=== PATIENT | female | born 1975 | race Caucasian/White ===

== ENCOUNTER 2018-09-20 11:54 | Inpatient (IN) | payer MEDICARE, MEDICAID ==
--- NOTE | 2018-09-20 13:11 | EDM.PDOC ---
ED HPI GENERAL MEDICAL PROBLEM - General Stated Complaint: DIZZY STOMACH PAIN Time Seen by Provider: 09/20/18 12:40 Source of Information: Reports: Patient History Limitations: Reports: No Limitations - History of Present Illness INITIAL COMMENTS - FREE TEXT/NARRATIVE: We 3-year-old resident of [facility] has had diarrhea 2-3 times yesterday none today, vomiting 2-3 times today, has been dizzy, yesterday temperature elevation than today. Yesterday and today diaphoresis. And patient fell yesterday. No history of trauma. She is in [facility] and here with a caregiver. Past medical history is significant for social phobia, obsessive-compulsive disorder, mood disorder, mental retardation mild, macrocephaly, and other medical problems: obesity cholelithiasis poor oral hygiene abdominal discomfort intermittent, chronic acne , onychomycosis and is on Depo-Provera uses clotrimazole betamethasone for vag.fungal infections GERD omeprzole 40 mg daily and on antidepressant medicines : venlafaxine and sertraline Lower Abdominal Pain Score (Numeric/FACES): 6 - Related Data Allergies Allergy/AdvReac Type Severity Reaction Status Date / Time latex Allergy Cannot Verified 09/20/18 12:21 Remember Penicillins Allergy Rash Verified 09/20/18 12:21 Home Meds: Home Meds ARIPiprazole [Aripiprazole] 15 mg PO BEDTIME 09/20/18 [History] Benzocaine/Resorcinol [Vaginal Itch Cream] 1 applic TOP BEDTIME 09/20/18 [ History] Clotrimazole/Betameth Dip/Zinc [Dermacinrx Therazole Shane] 1 ampule TOP BID PRN 09/20/18 [History] Mineral Oil/I-Prop Myr/Water [Minerin] 1 applic TOP BID 09/20/18 [History] Multivits w-Fe,Other Min/Lut [Theratrum Complete] 1 ea PO DAILY 09/20/18 [ History] Omeprazole 40 mg PO DAILY 09/20/18 [History] Sertraline [Zoloft] 50 mg PO BID 09/20/18 [History] Sertraline [Zoloft] 100 mg PO BID 09/20/18 [History] Venlafaxine HCl [Venlafaxine ER] 150 mg PO DAILY 09/20/18 [History] hydrOXYzine pamoate [Hydroxyzine Pamoate] 25 mg PO DAILYBH PRN 09/20/18 [History ] ED ROS GENERAL - Review of Systems Review Of Systems: See Below HEENT: Reports: No Symptoms Respiratory: Reports: No Symptoms, Other (No cough) Cardiovascular: Reports: No Symptoms Endocrine: Reports: No Symptoms GI/Abdominal: Reports: Diarrhea, Vomiting : Reports: No Symptoms Musculoskeletal: Reports: No Symptoms Skin: Reports: No Symptoms Psychiatric: Reports: Anxiety, Other (Depression and obsessive-compulsive, social phobia, mental retardation, mood disorder,) Immunologic: Reports: No Symptoms ED EXAM, GENERAL - Physical Exam Exam: See Below Free Text/Narrative:: 43-year-old woman who is laying in bed and is interactive and appropriate obese well-nourished in mild distress who 15 days later after she had been exam states she had mild chest discomfort. Exam Limited By: No Limitations General Appearance: Alert, WD/WN, Moderate Distress Eye Exam: Bilateral Eye: Normal Inspection Ear Exam: Bilateral Ear: Auricle Normal, Canal Normal, TM normal Nose: Normal Inspection, Normal Mucosa, No Blood Throat/Mouth: Normal Inspection, Normal Lips, Normal Oropharynx, Normal Voice, No Airway Compromise, Other (Poor dentition) Head: Atraumatic, Normocephalic Respiratory/Chest: No Respiratory Distress, Lungs Clear, No Accessory Muscle Use , Chest Non-Tender Cardiovascular: Normal Peripheral Pulses, Regular Rate, Rhythm, No Edema, No Gallop, No JVD, No Murmur, No Rub Peripheral Pulses: 1+: Brachial (L), Brachial (R), Dorsalis Pedis (L), Dorsalis Pedis (R) GI/Abdominal: Normal Bowel Sounds, Soft, Non-Tender, No Organomegaly, No Distention, No Abnormal Bruit, No Mass (Female) Exam: Deferred Rectal (Female) Exam: Deferred Back Exam: Normal Inspection Extremities: Normal Inspection, Normal Range of Motion, No Pedal Edema, Normal Capillary Refill, Other (Feet are very cold) Neurological: Alert, Oriented, CN II-XII Intact, Normal Cognition, Normal Gait, Normal Reflexes, No Motor/Sensory Deficits Psychiatric: Flat Affect Skin Exam: Warm, Normal Color, No Rash, Other (Feet are very cold no diaphoresis ) Course - Vital Signs Last Recorded V/S: Last Vital Signs Temp 36.5 C 09/20/18 12:39 Pulse 132 H 09/20/18 12:39 Resp 20 09/20/18 12:39 BP 132/109 H 09/20/18 12:39 Pulse Ox 98 09/20/18 12:39 - Orders/Labs/Meds Orders: Active Orders 24 hr Category Date Time Status Patient Status [ADT] Routine ADT 09/20/18 14:20 Ordered Ambulate [RC] ASDIRECTED Care 09/20/18 14:20 Ordered Cardiac Monitoring [RC] CONTINUOUS Care 09/20/18 14:26 Ordered May Shower [RC] ASDIRECTED Care 09/20/18 14:20 Ordered Notify Provider Vital Signs [RC] ASDIRECTED Care 09/20/18 14:26 Ordered Oxygen Therapy [RC] PRN Care 09/20/18 14:20 Ordered Pulse Oximetry [RC] CONTINUOUS Care 09/20/18 14:26 Ordered RT Aerosol Therapy [RC] ASDIRECTED Care 09/20/18 14:30 Ordered Up ad Rossana [RC] ASDIRECTED Care 09/20/18 14:20 Ordered VTE/DVT Education [RC] Per Unit Routine Care 09/20/18 14:20 Ordered Vital Signs [RC] Q4H Care 09/20/18 14:20 Ordered Regular Diet [DIET] Diet 09/20/18 Lunch Ordered CXR [Chest 2V] [CR] Stat Exams 09/20/18 13:32 Ordered BLOOD GAS ARTERIAL [BG] Timed Lab 09/20/18 14:20 Ordered CULTURE BLOOD [BC] Urgent Lab 09/20/18 13:05 Received CULTURE BLOOD [BC] Urgent Lab 09/20/18 13:31 Ordered CULTURE STREP A CONFIRMATION [RM] Stat Lab 09/20/18 13:20 Results STREP SCRN A RAPID W CULT CONF [RM] Stat Lab 09/20/18 13:20 Results STREP SCRN A RAPID W CULT CONF [RM] Stat Lab 09/20/18 13:34 Ordered Acetaminophen [Tylenol] Med 09/20/18 14:20 Ordered 650 mg PO Q4H PRN Albuterol/Ipratropium [DuoNeb 3.0-0.5 MG/3 ML] Med 09/20/18 16:00 Ordered 3 ml NEB QIDRT Bisacodyl [Dulcolax] Med 09/20/18 14:20 Ordered 5 mg PO DAILY PRN Docusate Sodium/Sennosides [Senna Plus] Med 09/20/18 14:20 Ordered 1 tab PO BID PRN Enoxaparin [Lovenox] Med 09/20/18 14:30 Ordered 40 mg SUBCUT Q24H Ibuprofen [Motrin] Med 09/20/18 14:20 Ordered 600 mg PO Q6H PRN Ondansetron [Zofran ODT] Med 09/20/18 14:20 Ordered 4 mg PO Q6H PRN Ondansetron [Zofran] Med 09/20/18 14:20 Ordered 4 mg IV Q6H PRN Piperacillin/Tazobactam [Zosyn] 4.5 gm Med 09/20/18 14:45 Ordered Sodium Chloride 0.9% [Normal Saline] 100 ml IV Q6H Sodium Chloride 0.9% [Normal Saline] 500 ml Med 09/20/18 14:20 Ordered IV .BOLUS Vancomycin 1,750 mg Med 09/20/18 14:36 Ordered Sodium Chloride 0.9% [Normal Saline] 250 ml IV ONETIME Blood Culture x2 Reflex Set [OM.PC] Urgent Oth 09/20/18 13:31 Ordered Resuscitation Status Routine Resus Stat 09/20/18 14:20 Ordered Medication Orders Acetaminophen (Tylenol) 650 mg PO Q4H PRN PRN Reason: Pain (Mild 1-3)/fever Albuterol/Ipratropium (Duoneb 3.0-0.5 Mg/3 Ml) 3 ml NEB QIDRT CECILIA Bisacodyl (Dulcolax) 5 mg PO DAILY PRN PRN Reason: Constipation Enoxaparin Sodium (Lovenox) 40 mg SUBCUT Q24H CECILIA Sodium Chloride (Normal Saline) 500 mls @ 999 mls/hr IV .BOLUS ONE Stop: 09/20/18 14:50 Piperacillin Sod/Tazobactam (Sod 4.5 gm/ Sodium Chloride) 100 mls @ 200 mls/hr IV Q6H CECILIA Vancomycin HCl 1,750 mg/ (Sodium Chloride) 250 mls @ 166.667 mls/hr IV ONETIME ONE Stop: 09/20/18 14:37 Ibuprofen (Motrin) 600 mg PO Q6H PRN PRN Reason: Pain (mild 1-3) Ondansetron HCl (Zofran Odt) 4 mg PO Q6H PRN PRN Reason: nausea, able to take PO Ondansetron HCl (Zofran) 4 mg IV Q6H PRN PRN Reason: Nausea/Vomiting Senna/Docusate Sodium (Senna Plus) 1 tab PO BID PRN PRN Reason: Constipation Labs: Laboratory Tests 09/20/18 09/20/18 09/20/18 Range/Units 13:05 13:05 13:05 WBC 12.1 H (4.5-12.0) X10-3/uL RBC 4.70 (3.23-5.20) x10(6)uL Hgb 15.3 (11.5-15.5) g/dL Hct 45.7 (30.0-51.3) % MCV 97.4 H (80-96) fL MCH 32.7 (27.7-33.6) pg MCHC 33.6 (32.2-35.4) g/dL RDW 13.5 (11.5-15.5) % Plt Count 286 (125-369) X10(3)uL MPV 7.8 (7.4-10.4) fL Add Manual Diff Yes Neutrophils % (Manual) 82 (46-82) % Band Neutrophils % 1 (0-6) % Lymphocytes % (Manual) 14 (13-37) % Monocytes % (Manual) 3 L (4-12) % Sodium 140 (135-145) mmol/L Potassium 3.6 (3.5-5.3) mmol/L Chloride 104 (100-110) mmol/L Carbon Dioxide 23 (21-32) mmol/L BUN 13 (7-18) mg/dL Creatinine 1.1 H (0.55-1.02) mg/dL Est Cr Clr Drug Dosing 12.02 mL/min Estimated GFR (MDRD) 54 L (>60) BUN/Creatinine Ratio 11.8 (9-20) Glucose 159 H (80-116) mg/dL Lactic Acid 4.4 H (0.4-2.2) mmol/L Calcium 8.8 (8.6-10.2) mg/dL Total Bilirubin 0.4 (0.1-1.3) mg/dL AST 72 H (5-25) IU/L ALT 163 H* (12-36) U/L Alkaline Phosphatase 85 (56-112) IU/L Total Protein 7.6 (6.0-8.0) g/dL Albumin 3.6 (3.5-5.2) g/dL Globulin 4.0 g/dL Albumin/Globulin Ratio 0.9 Urine Color (YELLOW) Urine Appearance (CLEAR) Urine pH (5.0-6.5) Ur Specific Spearman (1.010-1.025) Urine Protein (NEGATIVE) mg/dL Urine Glucose (UA) (NEGATIVE) mg/dL Urine Ketones (NEGATIVE) mg/dL Urine Occult Blood (NEGATIVE) Urine Nitrite (NEGATIVE) Urine Bilirubin (NEGATIVE) Urine Urobilinogen (NEGATIVE) mg/dL Ur Leukocyte Esterase (NEGATIVE) Urine RBC (0) Urine WBC (0) Ur Squamous Epith Cells (NS,R,O) Amorphous Sediment Urine Bacteria (NS) Urine Mucus (NS) 09/20/18 Range/Units 13:56 WBC (4.5-12.0) X10-3/uL RBC (3.23-5.20) x10(6)uL Hgb (11.5-15.5) g/dL Hct (30.0-51.3) % MCV (80-96) fL MCH (27.7-33.6) pg MCHC (32.2-35.4) g/dL RDW (11.5-15.5) % Plt Count (125-369) X10(3)uL MPV (7.4-10.4) fL Add Manual Diff Neutrophils % (Manual) (46-82) % Band Neutrophils % (0-6) % Lymphocytes % (Manual) (13-37) % Monocytes % (Manual) (4-12) % Sodium (135-145) mmol/L Potassium (3.5-5.3) mmol/L Chloride (100-110) mmol/L Carbon Dioxide (21-32) mmol/L BUN (7-18) mg/dL Creatinine (0.55-1.02) mg/dL Est Cr Clr Drug Dosing mL/min Estimated GFR (MDRD) (>60) BUN/Creatinine Ratio (9-20) Glucose (80-116) mg/dL Lactic Acid (0.4-2.2) mmol/L Calcium (8.6-10.2) mg/dL Total Bilirubin (0.1-1.3) mg/dL AST (5-25) IU/L ALT (12-36) U/L Alkaline Phosphatase (56-112) IU/L Total Protein (6.0-8.0) g/dL Albumin (3.5-5.2) g/dL Globulin g/dL Albumin/Globulin Ratio Urine Color Yellow (YELLOW) Urine Appearance Slightly cloudy (CLEAR) Urine pH 5.0 (5.0-6.5) Ur Specific Spearman 1.020 (1.010-1.025) Urine Protein Trace (NEGATIVE) mg/dL Urine Glucose (UA) Normal (NEGATIVE) mg/dL Urine Ketones Negative (NEGATIVE) mg/dL Urine Occult Blood Moderate H (NEGATIVE) Urine Nitrite Negative (NEGATIVE) Urine Bilirubin Negative (NEGATIVE) Urine Urobilinogen Normal (NEGATIVE) mg/dL Ur Leukocyte Esterase Negative (NEGATIVE) Urine RBC 5-10 (0) Urine WBC 0-5 (0) Ur Squamous Epith Cells Few H (NS,R,O) Amorphous Sediment Few Urine Bacteria Moderate H (NS) Urine Mucus Moderate H (NS) Meds: Medications Generic Name Dose Route Start Last Admin Trade Name Freq PRN Reason Stop Dose Admin Acetaminophen 650 mg 09/20/18 14:20 Tylenol PO Q4H PRN Pain (Mild 1-3)/fever Albuterol/Ipratropium 3 ml 09/20/18 16:00 Duoneb 3.0-0.5 Mg/3 Ml NEB QIDRT [facility] Bisacodyl 5 mg 09/20/18 14:20 Dulcolax PO DAILY PRN Constipation Enoxaparin Sodium 40 mg 09/20/18 14:30 Lovenox SUBCUT Q24H [facility] Sodium Chloride 500 mls @ 999 mls/hr 09/20/18 14:20 Normal Saline IV 09/20/18 14:50 .BOLUS ONE Piperacillin Sod/Tazobactam 100 mls @ 200 mls/hr 09/20/18 14:45 Sod 4.5 gm/ Sodium Chloride IV Q6H [facility] Vancomycin HCl 1,750 mg/ 250 mls @ 166.667 mls/hr 09/20/18 14:36 Sodium Chloride IV 09/20/18 14:37 ONETIME ONE Ibuprofen 600 mg 09/20/18 14:20 Motrin PO Q6H PRN Pain (mild 1-3) Ondansetron HCl 4 mg 09/20/18 14:20 Zofran Odt PO Q6H PRN nausea, able to take PO Ondansetron HCl 4 mg 09/20/18 14:20 Zofran IV Q6H PRN Nausea/Vomiting Senna/Docusate Sodium 1 tab 09/20/18 14:20 Senna Plus PO BID PRN Constipation - Re-Assessments/Exams Free Text/Narrative Re-Assessment/Exam: 09/20/18 14:38 Bihilar pneumonia. Patient has high lactic acid 4.0. Early sepsis. Will need serial lactic acid evaluation and close monitoring of vital signs. I have discussed with Dr. Souza and nursing staff.. 09/20/18 14:40 Departure - Departure Time of Disposition: 13:00 (1300 working diagnosis rule out pneumonia,influenza (he shouldn't has had her flu shots), strep pharyngitis, urinary tract infection ,gastroenteritis, dehydration, chest discomfort doubt myocardial ischemia, without myocardial ischemia. Diagnoses once laboratory finish. Lactic acidosis secondary to by hilar pneumonia. Plan stat start vancomycin plus Zosyn for healthcare associated pneumonia. Status discussed with Dr. Souza. Follow -up vital signs closely. Flushed with fluids. Tylenol ibuprofen admitted to the hospital) Disposition: Admitted As Inpatient 64 Condition: Fair Clinical Impression: Social phobia, Mental deficiency Sepsis Qualifiers: Sepsis type: sepsis due to unspecified organism Qualified Code(s): A41.9 - Sepsis, unspecified organism Pneumonia Qualifiers: Pneumonia type: due to unspecified organism Laterality: bilateral Lung location : unspecified part of lung Qualified Code(s): J18.9 - Pneumonia, unspecified organism Obesity Qualifiers: Obesity type: due to excess calories Obesity classification: adult class 3 ( BMI >= 40) Serious obesity comorbidity presence: without serious comorbidity Body mass index: BMI 40.0-44.9 Qualified Code(s): E66.01 - Morbid (severe) obesity due to excess calories; Z68.41 - Body mass index (BMI) 40.0-44.9, adult Cholelithiases Qualifiers: Cholelithiasis location: other site Biliary obstruction: without biliary obstruction Qualified Code(s): K80.80 - Other cholelithiasis without obstruction - Discharge Information *PRESCRIPTION DRUG MONITORING PROGRAM REVIEWED*: Not Applicable *COPY OF PRESCRIPTION DRUG MONITORING REPORT IN PATIENT COLBY: Not Applicable Referrals: Jose D Milligan MD [Primary Care Provider] - - My Orders Last 24 Hours: My Active Orders 09/20/18 13:05 CULTURE BLOOD [BC] Urgent 09/20/18 13:20 CULTURE STREP A CONFIRMATION [RM] Stat STREP SCRN A RAPID W CULT CONF [RM] Stat 09/20/18 13:31 CULTURE BLOOD [BC] Urgent Blood Culture x2 Reflex Set [OM.PC] Urgent 09/20/18 13:32 CXR [Chest 2V] [CR] Stat 09/20/18 13:34 STREP SCRN A RAPID W CULT CONF [RM] Stat 09/20/18 14:20 Patient Status [ADT] Routine Ambulate [RC] ASDIRECTED May Shower [RC] ASDIRECTED Oxygen Therapy [RC] PRN Up ad Rossana [RC] ASDIRECTED VTE/DVT Education [RC] Per Unit Routine Vital Signs [RC] Q4H BLOOD GAS ARTERIAL [BG] Timed Acetaminophen [Tylenol] 650 mg PO Q4H PRN Bisacodyl [Dulcolax] 5 mg PO DAILY PRN Docusate Sodium/Sennosides [Senna Plus] 1 tab PO BID PRN Ibuprofen [Motrin] 600 mg PO Q6H PRN Ondansetron [Zofran ODT] 4 mg PO Q6H PRN Ondansetron [Zofran] 4 mg IV Q6H PRN Sodium Chloride 0.9% [Normal Saline] 500 ml IV .BOLUS Resuscitation Status Routine 09/20/18 14:26 Cardiac Monitoring [RC] CONTINUOUS Notify Provider Vital Signs [RC] ASDIRECTED Pulse Oximetry [RC] CONTINUOUS 09/20/18 14:30 RT Aerosol Therapy [RC] ASDIRECTED Enoxaparin [Lovenox] 40 mg SUBCUT Q24H 09/20/18 14:36 Vancomycin 1,750 mg Sodium Chloride 0.9% [Normal Saline] 250 ml IV ONETIME 09/20/18 14:45 Piperacillin/Tazobactam [Zosyn] 4.5 gm Sodium Chloride 0.9% [Normal Saline] 100 ml IV Q6H 09/20/18 16:00 Albuterol/Ipratropium [DuoNeb 3.0-0.5 MG/3 ML] 3 ml NEB QIDRT 09/20/18 Lunch Regular Diet [DIET] - Assessment/Plan Last 24 Hours: My Active Orders 09/20/18 13:05 CULTURE BLOOD [BC] Urgent 09/20/18 13:20 CULTURE STREP A CONFIRMATION [RM] Stat STREP SCRN A RAPID W CULT CONF [RM] Stat 09/20/18 13:31 CULTURE BLOOD [BC] Urgent Blood Culture x2 Reflex Set [OM.PC] Urgent 09/20/18 13:32 CXR [Chest 2V] [CR] Stat 09/20/18 13:34 STREP SCRN A RAPID W CULT CONF [RM] Stat 09/20/18 14:20 Patient Status [ADT] Routine Ambulate [RC] ASDIRECTED May Shower [RC] ASDIRECTED Oxygen Therapy [RC] PRN Up ad Rossana [RC] ASDIRECTED VTE/DVT Education [RC] Per Unit Routine Vital Signs [RC] Q4H BLOOD GAS ARTERIAL [BG] Timed Acetaminophen [Tylenol] 650 mg PO Q4H PRN Bisacodyl [Dulcolax] 5 mg PO DAILY PRN Docusate Sodium/Sennosides [Senna Plus] 1 tab PO BID PRN Ibuprofen [Motrin] 600 mg PO Q6H PRN Ondansetron [Zofran ODT] 4 mg PO Q6H PRN Ondansetron [Zofran] 4 mg IV Q6H PRN Sodium Chloride 0.9% [Normal Saline] 500 ml IV .BOLUS Resuscitation Status Routine 09/20/18 14:26 Cardiac Monitoring [RC] CONTINUOUS Notify Provider Vital Signs [RC] ASDIRECTED Pulse Oximetry [RC] CONTINUOUS 09/20/18 14:30 RT Aerosol Therapy [RC] ASDIRECTED Enoxaparin [Lovenox] 40 mg SUBCUT Q24H 09/20/18 14:36 Vancomycin 1,750 mg Sodium Chloride 0.9% [Normal Saline] 250 ml IV ONETIME 09/20/18 14:45 Piperacillin/Tazobactam [Zosyn] 4.5 gm Sodium Chloride 0.9% [Normal Saline] 100 ml IV Q6H 09/20/18 16:00 Albuterol/Ipratropium [DuoNeb 3.0-0.5 MG/3 ML] 3 ml NEB QIDRT 09/20/18 Lunch Regular Diet [DIET]
[2018-09-20] MEDS ORDERED: Sodium Chloride 0.9% 500 ML IV ONE (14:20)
[2018-09-20] MEDS ORDERED: Ondansetron 4 MG/2 ML SDV IV PRN (14:20)
[2018-09-20] MEDS ORDERED: Ibuprofen 600 MG Tab PO PRN (14:20)
[2018-09-20] MEDS ORDERED: Ondansetron 4 MG Tab.DIS PO PRN (14:20)
[2018-09-20] MEDS ORDERED: Bisacodyl 5 MG Tab PO PRN (14:20)
[2018-09-20] MEDS ORDERED: Acetaminophen 325 MG Tab PO PRN (14:20)
[2018-09-20] MEDS ORDERED: VANCOMYCIN IV ONE (14:36)
[2018-09-20] MEDS ORDERED: SODIUM CHLORIDE 0.9% IV ONE (14:36)
[2018-09-20] MEDS ORDERED: Sodium Chloride 0.9% 1,000 ML IV ONE ×2 (14:46→17:50)
[2018-09-20] MEDS ORDERED: cefTRIAXone 1 GM in Sodium Chloride 0.9% 50 ML IV ONE (14:58)
[2018-09-20] MEDS ORDERED: Piperacillin/Tazobactam 4.5 GM in Sodium Chloride 0.9% 100 ML IV SCH ×2 (15:00→16:00)
[2018-09-20] MEDS ORDERED: Albuterol/Ipratropium 3.0-0.5 MG/3 ML Neb Soln NEB SCH (16:00)
[2018-09-20] MEDS ORDERED: Enoxaparin 40 MG/0.4 ML Syringe SUBCUT SCH (16:00)
[2018-09-20] MEDS ORDERED: Norepinephrine 4 MG in Dextrose 5% in Water 246 ML IV SCH ×2 (19:00)
[2018-09-20] MEDS ORDERED: Sodium Chloride 0.9% 1,000 ML IV SCH (19:15)
[2018-09-21] MEDS ORDERED: VANCOMYCIN IV SCH (04:00)
[2018-09-21] MEDS ORDERED: SODIUM CHLORIDE 0.9% IV SCH (04:00)
--- NOTE | 2018-09-21 11:58 | HP ---
ADMISSION DATE: 09/20/2018 HISTORY OF PRESENT ILLNESS: Melita Lynn is a 43-year-old female, who was seen at [facility], transferred to [facility] ER, was found to have evidence of complicated gastroenteritis with vomiting and diarrhea. Admitted to the hospital for treatment. Day prior to admission, 09/19/2018, [facility], went the bathroom, had a vasovagal episode, and fell, striking her left nondenominational, right infraorbital region, and left shoulder. She was attended to through the day. Had some episodes of diarrhea, low-grade fever, suspected lethargy, some episodes of vomiting. She went to [facility] today, the day of admission, found to be ill, was transferred to [facility]. Laboratory studies were performed, one liter of fluid was given, and admission to the hospital for treatment and intervention. Sepsis was of concerned, but GI origin accepted. Laboratory studies were reviewed. Elevated white count. Elevated lactic acid. Unremarkable chest x- ray. She was admitted to the floor for treatment. Supper was ordered. She sat up and vomited and became diaphoretic and lethargic. Blood pressure, which had been stable, declined markedly. I was asked to attend to her care at that point. She was given a bolus of fluids, placed in Trendelenburg, and transferred to ICU. Pressure, sats, intervention with supplemental O2 and IV Levophed intervention. Stability was in question, need for ventilator of concern. Anesthesia was consulted for conversation, and transfer to [place] timely and appropriate. Dr. Juancarlos Diaz agreed to accept in transfer. MEDICATIONS: Daily medications include: 1. Effexor 150 one p.o. daily. 2. Zoloft 150 one daily. 3. Abilify 15 mg at bedtime. 4. Prilosec 40 daily. ALLERGIES: To latex and penicillin. PAST MEDICAL HISTORY: Significant for no previous operative procedures, hospitalizations, unusual childhood diseases, major injuries, or fractures. Ongoing medical problems include mood disorder, mental retardation, and gastroesophageal reflux. SOCIAL HISTORY: [facility]. Well cared for. Works outside the home. Nonsmoker. No alcohol consumption. No illicit drug use. FAMILY HISTORY: Unavailable. REVIEW OF SYSTEMS: Please see HPI. Other review of systems noncontributory at present. OBJECTIVE: VITAL SIGNS: On admission were stable, decline is noted. HEENT: Awake, alert, appropriate, and conversational. Mouth and oropharynx clear. Funduscopic benign. Bright TMs. Clear nasal discharge. Mouth and oropharynx clear. CHEST: Clear all lung chery. HEART: No ectopy or murmur at 110. ABDOMEN: A little tender in epigastric area. Good bowel sounds. AND RECTAL: Deferred. EXTREMITIES: Well perfused. NEUROMUSCULAR: Intact. Laboratory studies noted. ASSESSMENT: Complicated gastroenteritis, sepsis, other issues, hypotension, hypovolemia. PLAN: Again IV fluids, Levophed, stabilized, saturations were reasonable, no intubation required, and is transferred to Dr. Diaz and staff at [facility]. /[id number] RADHA/ANTONIO
== END 2018-09-20 20:05 | DRG 872 ==
LOC: FB.ED 11:54 → FB.MS 14:41 → FB.ICU 18:10
PROVIDERS: ADMIT Family Medicine; ATTEND Family Medicine
DX: A41.9 Sepsis, unspecified organism (principal); Z68.41 Body mass index [BMI] 40.0-44.9, adult; F40.10 Social phobia, unspecified; K52.9 Noninfective gastroenteritis and colitis, unspecified; F42.9 Obsessive-compulsive disorder, unspecified; F39 Unspecified mood [affective] disorder; F70 Mild intellectual disabilities; Q75.3 Macrocephaly; B35.1 Tinea unguium; K21.9 Gastro-esophageal reflux disease without esophagitis; E66.01 Morbid (severe) obesity due to excess calories; K80.20 Calculus of gallbladder without cholecystitis without obstruction; Z91.040 Latex allergy status; Z88.0 Allergy status to penicillin; R42 Dizziness and giddiness; R10.9 Unspecified abdominal pain; L70.9 Acne, unspecified; R11.10 Vomiting, unspecified; I95.9 Hypotension, unspecified; E86.1 Hypovolemia
CPT/HCPCS: 36415; 71046; 80053; 81001; 83605; 85025; 87040 ×2; 87081; 87804 ×2; 87880; J7030; 51702; 94640; 96361; 96374; 99285-25; A9270-GY; J0696; J1650; J2405; J3370; J7040; J7050; J7060; J7620-GY

== ENCOUNTER 2020-06-17 04:37 | Emergency (ER) | payer MEDICARE, MEDICAID ==
[2020-06-17] MEDS ORDERED: Ondansetron 4 MG Tab.DIS PO ONE (05:02)
--- NOTE | 2020-06-17 06:46 | EDM.PDOC ---
ED HPI GENERAL MEDICAL PROBLEM - General Chief Complaint: General Stated Complaint: FEVER;DIZZY;LIGHT HEADED; LOW BP Time Seen by Provider: 06/17/20 04:50 Source of Information: Reports: Patient History Limitations: Reports: No Limitations - History of Present Illness INITIAL COMMENTS - FREE TEXT/NARRATIVE: Patient presented to the ED because of low garde fever, cough/ cold and dizziness with associated nausea. There is no vomiting, diarrhea or sore throat. 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 0145 generalized body Pain Score (Numeric/FACES): 2 - Related Data Allergies Allergy/AdvReac Type Severity Reaction Status Date / Time latex Allergy Cannot Verified 06/17/20 04:52 Remember Penicillins Allergy Rash Verified 06/17/20 04:52 Home Meds: Home Meds ARIPiprazole [Aripiprazole] 15 mg PO BEDTIME 09/20/18 [History] Benzocaine/Resorcinol [Vaginal Itch Cream] 1 applic TOP BEDTIME 09/20/18 [History] Clotrimazole/Betameth Dip/Zinc [Dermacinrx Therazole Shane] 1 ampule TOP BID PRN 09/20/18 [History] Mineral Oil/I-Prop Myr/Water [Minerin] 1 applic TOP BID 09/20/18 [History] Multivits w-Fe,Other Min/Lut [Theratrum Complete] 1 ea PO DAILY 09/20/18 [History] Omeprazole 40 mg PO DAILY 09/20/18 [History] Sertraline [Zoloft] 50 mg PO BID 09/20/18 [History] Sertraline [Zoloft] 100 mg PO BID 09/20/18 [History] Venlafaxine HCl [Venlafaxine ER] 150 mg PO DAILY 09/20/18 [History] hydrOXYzine pamoate [Hydroxyzine Pamoate] 25 mg PO DAILYBH PRN 09/20/18 [History] Ondansetron [Zofran ODT] 4 mg PO Q4H PRN #7 tab.dis 06/17/20 [Rx] Past Medical History - Past Health History Medical/Surgical History: Denies Medical/Surgical History HEENT History: Reports: Impaired Vision Respiratory History: Reports: PE, Other (See Below) Other Respiratory History: PNEUMONIA Gastrointestinal History: Reports: Cholelithiasis, GERD Genitourinary History: Reports: Other (See Below) Other Genitourinary History: VAGINAL CANDIASIS HISTORY. Neurological History: Reports: Other (See Below) Other Neuro History: MILD MENTAL RETARDATION Psychiatric History: Reports: Mood Swings, OCD, Other (See Below) Other Psychiatric History: social phobia Endocrine/Metabolic History: Reports: Obesity/BMI 30+ - Past Surgical History HEENT Surgical History: Reports: None Respiratory Surgical History: Reports: None GI Surgical History: Reports: None Female Surgical History: Reports: None Endocrine Surgical History: Reports: None Neurological Surgical History: Reports: None Dermatological Surgical History: Reports: None Social & Family History - Family History Family Medical History: No Pertinent Family History - Tobacco Use Tobacco Use Status *Q: Never Tobacco User - Caffeine Use Caffeine Use: Reports: None - Recreational Drug Use Recreational Drug Use: No ED ROS GENERAL - Review of Systems Review Of Systems: See Below Constitutional: Reports: No Symptoms HEENT: Reports: No Symptoms Respiratory: Reports: Cough Cardiovascular: Reports: No Symptoms Endocrine: Reports: No Symptoms GI/Abdominal: Reports: Nausea Musculoskeletal: Reports: No Symptoms Skin: Reports: No Symptoms Neurological: Reports: No Symptoms Psychiatric: Reports: No Symptoms Hematologic/Lymphatic: Reports: No Symptoms ED EXAM, GENERAL - Physical Exam Exam: See Below Exam Limited By: No Limitations General Appearance: Alert, No Apparent Distress Ears: Normal External Exam, Normal Canal Nose: Normal Inspection, Normal Mucosa Throat/Mouth: Normal Inspection, Normal Lips, Normal Teeth Head: Atraumatic, Normocephalic Neck: Normal Inspection, Supple, Non-Tender, Full Range of Motion Respiratory/Chest: No Respiratory Distress, Lungs Clear, Normal Breath Sounds Cardiovascular: Normal Peripheral Pulses, Regular Rate, Rhythm, No Edema, No Gallop GI/Abdominal: Normal Bowel Sounds, Soft, Non-Tender, No Organomegaly, No Distention, No Abnormal Bruit, No Mass Back Exam: Normal Inspection, Full Range of Motion Course - Vital Signs Text/Narrative:: Labs/CXR reviewed and discussed with patient and caregiver CXR-see result Zofran ODT 4 mg PO x2 doses Last Recorded V/S: Last Vital Signs Temp 37.3 C 06/17/20 04:45 Pulse 104 H 06/17/20 04:45 Resp 18 06/17/20 04:45 BP 99/62 11/23/20 04:45 Pulse Ox 99 06/17/20 04:45 - Orders/Labs/Meds Orders: Active Orders 24 hr Category Date Time Status Chest 1V Frontal [CR] Stat Exams 06/17/20 05:01 Taken CORONAVIRUS COVID-19 PCR PHL Stat Lab 06/17/20 04:46 Ordered Isolation [COMM] Routine Oth 06/17/20 05:00 Ordered Labs: Laboratory Tests 06/17/20 06/17/20 06/17/20 Range/Units 04:46 05:20 05:20 WBC 5.8 (3.0-10.3) x10-3/uL RBC 4.15 (3.60-5.20) x10(6)uL Hgb 13.4 (11.4-15.5) g/dL Hct 40.0 (34.2-48.2) % MCV 96.2 (76.7-100.5) fL MCH 32.4 (23.9-33.9) pg MCHC 33.7 (31.9-34.8) g/dL RDW 13.7 (12.3-16.5) % Plt Count 225 (151-488) x10(3)uL MPV 7.3 (7.1-12.4) fL Neut % (Auto) 83.8 H (30.8-76.2) % Lymph % (Auto) 8.9 L (18.4-52.1) % [place] % (Auto) 6.9 (4.4-15.7) % Eos % (Auto) 0.1 L (0.6-8.1) % Baso % (Auto) 0.3 (0.2-1.5) % Neut # (Auto) 4.9 (1.5-6.3) x10-3/uL Lymph # (Auto) 0.5 L (1.0-4.4) x10-3/uL [place] # (Auto) 0.4 (0.3-1.0) x10-3/uL Eos # (Auto) 0.0 (0.0-0.8) x10-3/uL Baso # (Auto) 0.0 (0.0-0.1) x10-3/uL Sodium 137 (135-145) mmol/L Potassium 3.7 (3.5-5.3) mmol/L Chloride 100 (100-110) mmol/L Carbon Dioxide 27 (21-32) mmol/L BUN 13 (7-18) mg/dL Creatinine 0.9 (0.55-1.02) mg/dL Est Cr Clr Drug Dosing 75.95 mL/min Estimated GFR (MDRD) > 60 (>60) BUN/Creatinine Ratio 14.4 (9-20) Glucose 92 (80-116) mg/dL Calcium 8.6 (8.6-10.2) mg/dL Total Bilirubin 0.3 (0.1-1.3) mg/dL AST 15 D (5-25) IU/L ALT 25 D (12-36) U/L Alkaline Phosphatase 62 (56-112) IU/L Total Protein 8.0 (6.0-8.0) g/dL Albumin 3.5 (3.5-5.2) g/dL Globulin 4.5 g/dL Albumin/Globulin Ratio 0.8 Urine Color (YELLOW) Urine Appearance (CLEAR) Urine pH (5.0-6.5) Ur Specific [place] (1.010-1.025) Urine Protein (NEGATIVE) mg/dL Urine Glucose (UA) (NORMAL) mg/dL Urine Ketones (NEGATIVE) mg/dL Urine Occult Blood (NEGATIVE) Urine Nitrite (NEGATIVE) Urine Bilirubin (NEGATIVE) Urine Urobilinogen (NEGATIVE) mg/dL Ur Leukocyte Esterase (NEGATIVE) Urine RBC (0-5) Urine WBC (0-5) Ur Squamous Epith Cells (NS,R,O) Urine Bacteria (NS) SARS-CoV-2 RNA (GOPI) Positive H (NEGATIVE) 06/17/20 Range/Units 06:05 WBC (3.0-10.3) x10-3/uL RBC (3.60-5.20) x10(6)uL Hgb (11.4-15.5) g/dL Hct (34.2-48.2) % MCV (76.7-100.5) fL MCH (23.9-33.9) pg MCHC (31.9-34.8) g/dL RDW (12.3-16.5) % Plt Count (151-488) x10(3)uL MPV (7.1-12.4) fL Neut % (Auto) (30.8-76.2) % Lymph % (Auto) (18.4-52.1) % [place] % (Auto) (4.4-15.7) % Eos % (Auto) (0.6-8.1) % Baso % (Auto) (0.2-1.5) % Neut # (Auto) (1.5-6.3) x10-3/uL Lymph # (Auto) (1.0-4.4) x10-3/uL [place] # (Auto) (0.3-1.0) x10-3/uL Eos # (Auto) (0.0-0.8) x10-3/uL Baso # (Auto) (0.0-0.1) x10-3/uL Sodium (135-145) mmol/L Potassium (3.5-5.3) mmol/L Chloride (100-110) mmol/L Carbon Dioxide (21-32) mmol/L BUN (7-18) mg/dL Creatinine (0.55-1.02) mg/dL Est Cr Clr Drug Dosing mL/min Estimated GFR (MDRD) (>60) BUN/Creatinine Ratio (9-20) Glucose (80-116) mg/dL Calcium (8.6-10.2) mg/dL Total Bilirubin (0.1-1.3) mg/dL AST (5-25) IU/L ALT (12-36) U/L Alkaline Phosphatase (56-112) IU/L Total Protein (6.0-8.0) g/dL Albumin (3.5-5.2) g/dL Globulin g/dL Albumin/Globulin Ratio Urine Color Yellow (YELLOW) Urine Appearance Slightly cloudy (CLEAR) Urine pH 5.0 (5.0-6.5) Ur Specific [place] 1.025 (1.010-1.025) Urine Protein Negative (NEGATIVE) mg/dL Urine Glucose (UA) Normal (NORMAL) mg/dL Urine Ketones Negative (NEGATIVE) mg/dL Urine Occult Blood Large H (NEGATIVE) Urine Nitrite Negative (NEGATIVE) Urine Bilirubin Negative (NEGATIVE) Urine Urobilinogen Normal (NEGATIVE) mg/dL Ur Leukocyte Esterase Negative (NEGATIVE) Urine RBC 10-20 H (0-5) Urine WBC 0-5 (0-5) Ur Squamous Epith Cells Few H (NS,R,O) Urine Bacteria Moderate H (NS) SARS-CoV-2 RNA (GOPI) (NEGATIVE) Meds: Medications Discontinued Medications Generic Name Dose Route Start Last Admin Trade Name Freq PRN Reason Stop Dose Admin Ondansetron HCl 4 mg 06/17/20 05:02 06/17/20 05:26 Zofran Odt PO 06/17/20 05:03 4 mg ONETIME ONE Administration Ondansetron HCl 4 mg 06/17/20 06:51 Zofran Odt PO 06/17/20 06:52 NOW STA Departure - Departure Time of Disposition: 06:50 Disposition: Home, Self-Care 01 Condition: Good Clinical Impression: COVID-19 - Discharge Information Prescriptions: Ondansetron [Zofran ODT] 4 mg PO Q4H PRN #7 tab.dis PRN Reason: Nausea Instructions: COVID-19 Frequently Asked Questions Referrals: PCP,None [Primary Care Provider] - Forms: ED Department Discharge Additional Instructions: Please read discharge instructions on COVID 19 Increase oral fluids at least 2-3 liters a day Take ibuprofen 800 mg with tylenol 1000 mg every 8 hours as needed for pain/fever Take 1 tablet each of Vit C, D, Zinc daily Isolate yourself for 10-4 days I Sepsis Event Note (ED) - Evaluation Sepsis Screening Result: No Definite Risk - Focused Exam Vital Signs: Vital Signs Temp Pulse Resp BP Pulse Ox 06/17/20 04:45 37.3 C 104 H 18 99/62 99 - My Orders Last 24 Hours: My Active Orders 06/17/20 04:46 CORONAVIRUS COVID-19 PCR PHL Stat 06/17/20 05:00 Isolation [COMM] Routine 06/17/20 05:01 Chest 1V Frontal [CR] Stat - Assessment/Plan Last 24 Hours: My Active Orders 06/17/20 04:46 CORONAVIRUS COVID-19 PCR PHL Stat 06/17/20 05:00 Isolation [COMM] Routine 06/17/20 05:01 Chest 1V Frontal [CR] Stat
[2020-06-17] MEDS ORDERED: Ondansetron 4 MG Tab.DIS PO STA (06:51)
[2020-06-17] MEDS ORDERED: Ibuprofen 800 MG Tab PO ONE (07:03)
[2020-06-17] MEDS ORDERED: Acetaminophen 500 MG Tab PO ONE (07:03)
--- NOTE | 2020-06-17 12:10 | CR ---
INDICATION: Cough, dyspnea. A portable AP upright view of the chest was obtained 06/17/20 at 0548 hours and compared with 09/20/18 examination - PA view. Poor inspiration and somewhat motiony appearance are noted limiting detail. The heart appears enlarged, pulmonary vasculature is prominent and indistinct suggesting CHF, interstitial markings are heavy compatible with interstitial lung edema. No gross consolidating pneumonia or effusion was seen. However, interstitial changes and the indistinctness may be on the basis of pneumonia also, and should be correlated clinically. Evidence of exogenous obesity is again noted. IMPRESSION: Limited portable study, would suggest full inspiration PA and lateral views when clinically possible for further evaluation. At this time findings are compatible with CHF and interstitial lung edema, possibly some minimal acute pulmonary edema and/or pneumonia. MTDD
== END 2020-06-17 07:00 | disposition home or self-care (01) ==
LOC: FB.ED 04:37
DX: U07.1 COVID-19 (principal); K21.9 Gastro-esophageal reflux disease without esophagitis; F79 Unspecified intellectual disabilities; E66.9 Obesity, unspecified; Z68.41 Body mass index [BMI] 40.0-44.9, adult; Z91.040 Latex allergy status; Z88.0 Allergy status to penicillin; Z79.899 Other long term (current) drug therapy
CPT/HCPCS: 36415; 71045; 80053; 81001; 85025; 87804; 99283; A9270; U0002

== ENCOUNTER 2025-02-05 19:31 | Emergency (ER) | payer MEDICARE, MEDICAID | END 2025-02-05 20:46 | disposition home or self-care (01) | LOC: FB.ED 19:31 | DX: N60.81 Other benign mammary dysplasias of right breast (principal); K21.9 Gastro-esophageal reflux disease without esophagitis; E66.9 Obesity, unspecified; Z88.0 Allergy status to penicillin; Z91.040 Latex allergy status; Z79.899 Other long term (current) drug therapy | CPT/HCPCS: 10060; 99283-25 ==